=== PATIENT | female | born 1970 | race African-American/Black ===

== ENCOUNTER 2019-11-28 22:08 | Emergency (ER) | payer SELFPAY ==
[~2019-11-28] VITALS: Ht 157.5 cm; Wt 94.0 kg
[2019-11-29] MEDS ORDERED: KETOROLAC 30MG/ML VIAL IM ONE (04:45)
[2019-11-29 06:27] VITALS: BP 118/77
== END 2019-11-29 06:31 | disposition home or self-care (01) ==
LOC: ER 22:08
DX: M79.672 Pain in left foot (principal); E03.9 Hypothyroidism, unspecified
CPT/HCPCS: 73630; 96372; 99283; J1885; Z7610